=== PATIENT | male | born 1995 | race Two or more races ===

== ENCOUNTER → 2020-03-08 | Emergency (ER) | payer SELFPAY ==
[~2020-03-08] VITALS: Ht 165.1 cm; Wt 83.9 kg
[2020-03-08 22:00] VITALS: BP 139/89
--- NOTE | 2020-03-08 22:07 | Emergency Room Report ---
History of Present Illness General Chief Complaint: Medical Clearance Source: Patient Present Illness HPI Patient is a 24-year-old male brought in by [facility] department for medical clearance. Patient ports having injuries to both forearms as well as to both legs. Denies any current pain. He states that he had abrasions to both forearms and both legs. He states this occurred while entering the vehicle. He denies any significant pain. He reports having normal ambulation. He denies any change in movement to his ankles. He been able to ambulate well after injury. Denies any recent tetanus vaccine. Allergies: Coded Allergies: No Known Allergies (Unverified , 03/08/20) COVID-19 Screening Contact w/high risk pt: No Experienced COVID-19 symptoms?: No COVID-19 Testing performed DISPATCH SPECIALIST: No Patient History Past Medical History: see triage record Reviewed Nursing Documentation: PMH: Agreed; PSxH: Agreed Nursing Documentation-PMH Past Medical History: No Stated History Review of Systems All Other Systems: negative except mentioned in HPI Physical Exam Vital Signs Date Time Temp Pulse Resp B/P (MAP) Pulse Ox O2 Delivery O2 Flow Rate FiO2 03/08/20 21:54 99.0 69 19 139/89 (106) 98 Room Air Sp02 EP Interpretation: reviewed, normal General Appearance: normal inspection, well appearing, no apparent distress, alert, GCS 15 Head: atraumatic ENT: normal ENT inspection, hearing grossly normal, normal voice Neck: normal inspection, full range of motion, supple, no bony tend Respiratory: normal inspection, lungs clear, normal breath sounds, no respiratory distress, no retraction, no wheezing Cardiovascular #1: regular rate, rhythm, no edema Gastrointestinal: normal inspection, normal bowel sounds, non tender, soft, no guarding, no hernia Genitourinary: no CVA tenderness Musculoskeletal: normal inspection, back normal, normal range of motion Neurologic: alert, motor strength/tone normal, 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 Differential diagnosis includes not limited to contusion, compartment syndrome, fracture among others. Patient does not appear to have any evidence of significant pain or swelling to suggest compartment syndrome or fracture. Patient declined x-ray imaging as well as medications for discomfort. Patient declined tetanus vaccine.Patient was medically cleared for incarceration. Patient would be discharged to law enforcement custody. Last Vital Signs Date Time Temp Pulse Resp B/P (MAP) Pulse Ox O2 Delivery O2 Flow Rate FiO2 03/08/20 21:54 99.0 69 19 139/89 (106) 98 Room Air Status: improved Disposition: LAW ENFORCEMENT IN CUST Condition: Stable Manny Galarza MD Mar 08, 2020 22:07
== END ==
LOC: EMR 22:10
DX: S50.812A Abrasion of left forearm, initial encounter (principal); S50.811A Abrasion of right forearm, initial encounter; S80.812A Abrasion, left lower leg, initial encounter; S80.811A Abrasion, right lower leg, initial encounter; X58.XXXA Exposure to other specified factors, initial encounter; Y92.9 Unspecified place or not applicable
CPT/HCPCS: 99281